=== PATIENT | male | born 1930 | race Caucasian/White ===

== ENCOUNTER 2017-11-28 12:01 | Emergency (ER) | payer MEDICARE ==
[~2017-11-28] VITALS: Ht 170.2 cm; Wt 75.6 kg
[~2017-11-28 12:01] MED LIST: AMLO10 PO; B COTAB3 PO; CALCIUM/MAG/ZINC PO; CODCAP PO; COUM4TAB7 PO; FISH1000 PO; GARL500T PO; POTASSIUM PO; SAWPOW PO; VITA100017 PO; ZOCO40TA PO; [UNRECOGNIZED DRUG - CODE] PO
[2017-11-28 12:04] VITALS: BP 129/73; PULSE 82; RESP 20; TEMP 97.6; O2SAT 97
[2017-11-28] MEDS ORDERED: APIX5TAB PO (12:41)
[2017-11-28] MEDS ORDERED: AMLO10TA2 PO (12:41)
[2017-11-28] MEDS ORDERED: OMEG12002 (12:41)
[2017-11-28] MEDS ORDERED: MULT1TAB46 PO (12:41)
[2017-11-28] MEDS ORDERED: EYE SUPPORT PO (12:41)
[2017-11-28] MEDS ORDERED: DICL75TA PO (12:41)
[2017-11-28] MEDS ORDERED: VITA2000 PO (12:41)
--- NOTE | 2017-11-28 13:34 | RADRPT ---
EXAM DATE/TIME: 11/28/2017 13:10 [facility] COMPARISON: FOOT LEFT COMPLETE ([id number]), November 28, 2017, 13:10. INDICATIONS : Left ankle pain post fall MEDICAL HISTORY : None. SURGICAL HISTORY : None. ENCOUNTER: Initial ACUITY: 2 days PAIN SCORE: 4/10 LOCATION: Left entire ankle FINDINGS: There is soft tissue swelling greatest laterally and diffuse decreased bone density. Ankle mortise is approximated. Vascular calcifications are noted. Plantar and posterior calcaneal spurs are present. CONCLUSION: Soft tissue swelling. Osiel Neff MD on November 28, 2017 at 13:33 Board Certified Radiologist. This report was verified electronically.
--- NOTE | 2017-11-28 13:37 | RADRPT ---
EXAM DATE/TIME: 11/28/2017 13:10 [facility] COMPARISON: ANKLE LEFT COMPLETE ([id number]), November 28, 2017, 13:10. INDICATIONS : Left foot pain post fall. MEDICAL HISTORY : None. SURGICAL HISTORY : None. ENCOUNTER: Initial ACUITY: 2 days PAIN SCORE: 5/10 LOCATION: Left entire foot FINDINGS: There is soft tissue swelling about the ankle. Bone density is diminished. Calcaneal spurs are presen t. No fractures are seen. Vascular calcifications are noted. CONCLUSION: Soft tissue swelling. Atherosclerosis. Osiel Neff MD on November 28, 2017 at 13:35 Board Certified Radiologist. This report was verified electronically.
--- NOTE | 2017-11-28 13:56 | RADRPT ---
EXAM DATE/TIME: 11/28/2017 13:36 [facility] COMPARISON: No previous studies available for comparison. INDICATIONS : Trauma. Fall. RADIATION DOSE: 65.72 CTDIvol (mGy) MEDICAL HISTORY : A- fib. CAD. Hypercholesterolemia. COPD. Enlarged prostate. Arthritis. Smoker SURGICAL HISTORY : Hernia repair. Appendectomy. Cholecystectomy. Bilateral knee replacements. ENCOUNTER: Initial ACUITY: 1 day PAIN SCALE: 4/10 LOCATION: cranial TECHNIQUE: Multiple contiguous axial images were obtained of the head. Using automated exposure control and adj ustment of the mA and/or kV according to patient size, radiation dose was kept as low as reasonably a chievable to obtain optimal diagnostic quality images. DICOM format image data is available electro nically for review and comparison. FINDINGS: There is atrophy. No hemorrhage, infarct, or mass. Osseous structures are intact. CONCLUSION: No acute disease. Osiel Neff MD on November 28, 2017 at 13:54 Board Certified Radiologist. This report was verified electronically.
[2017-11-28] MEDS ORDERED: oxyCODONE/ACETAMINOPHEN 5 MG/325 MG TAB PO ONE (14:15)
--- NOTE | 2017-11-28 14:17 | RADRPT ---
EXAM DATE/TIME: 11/28/2017 13:40 [facility] COMPARISON: No previous studies available for comparison. INDICATIONS : Trauma. Fall. Low back pain. RADIATION DOSE: 32.87 CTDIvol (mGy) MEDICAL HISTORY : A- fib. CAD. Hypercholesterolemia. COPD. Enlarged prostate. Arthritis. Smoker. SURGICAL HISTORY : Hernia repair. Appendectomy. Cholecystectomy. Bilateral knee replacements ENCOUNTER: Initial ACUITY: 1 day PAIN SCALE: 6/10 LOCATION: Lumbar spine. TECHNIQUE: Volumetric scanning of the lumbar spine was performed. Multiplanar reconstructions in the sagittal, coronal and oblique axial planes were performed. Using automated exposure control and adjustment of the mA and/or kV according to patient size, radiation dose was kept as low as reasonably achievable t o obtain optimal diagnostic quality images. DICOM format image data is available electronically for review and comparison. FINDINGS: There is slight retrolisthesis of L1 relative to L2 and of L2 relative to L3. There is moderate degen erative change present throughout with disc space narrowing and vacuum disc phenomena at L2-3 L3-4 wi th less severe changes at other levels. Multiple endplate osteophytes present throughout. There is no evidence of fracture or destructive change. There is fairly severe arthritic change of the posterior facet joints, particularly at the lumbosacral junction. There is no evidence of bony canal or forami nal compromise. There is annular disc bulge and brought superimposed dorsal disc protrusion at L3-4 with ligamentous hypertrophy contributing to mild concentric canal stenosis and mild asymmetrically right-sided forami nal narrowing. Less significant changes at adjacent levels. Elsewhere on the exam, note is made of left renal cyst and nonobstructing left renal stones. There is a 3 cm mass involving the left adrenal gland which is fairly homogeneously low density consistent wi th adenoma. CONCLUSION: No acute bony injury in the lumbar spine Georges Carcamo MD on November 28, 2017 at 14:11 Board Certified Radiologist. This report was verified electronically.
[2017-11-28] MEDS ORDERED: TRAM50 PO (14:45)
--- NOTE | 2017-11-28 14:46 | PD ---
HPI Chief Complaint: Injury Time Seen by Provider: 12:59 Travel History International Travel<30 days: No Contact w/Intl Traveler<30days: No Traveled to known affect area: No History of Present Illness HPI 87-year-old male here with left ankle and foot pain after mechanical trip and fall. Patient is a history of dementia and is anticoagulated on her request. His daughters is present for this visit. She reports that he is in his normal state of health with the exception that he of difficulty bearing weight on the left foot. He reports pain in the foot and the ankle which is worse with weight -bearing and standing for long periods time. Repeat with rest. Symptom severity is moderate. He denies headache, neck pain, chest pain, shortness breath, abdominal pain. Symptom severity is mild to moderate. PFSH Past Medical History Hx Anticoagulant Therapy: Yes Arthritis: Yes Atrial Fibrillation: Yes Blood Disorders: No Cancer: No Cardiovascular Problems: Yes (afib) High Cholesterol: Yes COPD: Yes Coronary Artery Disease: Yes Diabetes: No Diminished Hearing: Yes Endocrine: No Glaucoma: No Genitourinary: Yes Hepatitis: No Hiatal Hernia: No Hypertension: Yes Immune Disorder: No Implanted Vascular Access Dvce: Yes Medical other: Yes (BPH) Musculoskeletal: Yes Neurologic: No Psychiatric: No Reproductive: Yes (PRASTATE ENLARGMENT) Thyroid Disease: No Tetanus Vaccination: > 5 Years Influenza Vaccination: Yes Past Surgical History Abdominal Surgery: Yes (BILATERAL INGUINAL HERNIA REPAIR) Appendectomy: Yes Cholecystectomy: Yes Eye Surgery: Yes (JOLENE. CATARACT EXTRACT) Joint Replacement: Yes (JOLENE. TKR) Pacemaker: No Social History Alcohol Use: No Tobacco Use: Yes (1 ppd) Allergies-Medications (Allergen,Severity, Reaction): Coded Allergies: No Known Allergies (Verified Allergy, Severe, 11/28/17) Reported Meds & Prescriptions Reported Meds & Active Scripts Active Ultram (Tramadol HCl) 50 Mg Tab 50 Mg PO Q6H PRN Reported Phillips 3 1200 mg (Phillips-3 Fatty Acids) 684 Mg-1,200 Mg Cap Amlodipine (Amlodipine Besylate) 10 Mg Tab 10 Mg PO DAILY Vitamin D3 (Cholecalciferol) 2,000 Unit Cap 2,000 Units PO DAILY [eye support] 1 Tab PO DAILY Multi Vitamin Daily (Multiple Vitamin) 1 Tab Tab 1 Tab PO DAILY Diclofenac Sodium DR (Diclofenac Sodium) 75 Mg Tabdr 75 Mg PO BID Eliquis (Apixaban) 5 Mg Tab 5 Mg PO BID Review of Systems General / Constitutional: No: Fever Eyes: No: Visual changes HENT: No: Headaches Cardiovascular: No: Chest Pain or Discomfort Respiratory: No: Shortness of Breath Gastrointestinal: No: Abdominal Pain Genitourinary: No: Dysuria Skin: No Rash Physical Exam Narrative GENERAL: Alert and well-appearing 87-year-old male SKIN: Warm and dry. HEAD: Atraumatic. Normocephalic. EYES: Pupils equal and round. EOMs intact. No injection or drainage. ENT: No nasal bleeding or discharge. Mucous membranes pink and moist. NECK: Trachea midline. No JVD. No cervical midline tenderness. CARDIOVASCULAR: Regular rate and rhythm. No chest wall tenderness RESPIRATORY: No accessory muscle use. Clear to auscultation. Breath sounds equal bilaterally. GASTROINTESTINAL: Abdomen soft, non-tender, nondistended. Nonrigid. No rebound or guarding. MUSCULOSKELETAL: Extremities without clubbing, cyanosis. No obvious deformities. No calf tenderness or Swelling. Mild swelling to the left ankle and foot shows TTP to the dorsal aspect of the foot. Patient can flex and extend the ankle without difficulty. Normal sensation. 2+ dorsal pedis pulse. Brisk cap refill. Back: Nontender cervical and thoracic spine. Mild tenderness diffusely over the lumbar spine. No step-off deformity. No CVA tenderness. NEUROLOGICAL: Awake and alert. Answers questions appropriately. No obvious cranial nerve deficits. Motor grossly within normal limits. Five out of 5 muscle strength in the arms and legs. Normal speech. Data Data Last Documented VS Vital Signs Date Time Temp Pulse Resp B/P (MAP) Pulse Ox O2 Delivery O2 Flow Rate FiO2 11/28/17 12:04 97.6 82 20 129/73 (91) [address] Brain W/O Iv Contrast(Rout) (11/28/17 12:59) Ankle, Complete (Uaf0pix) (11/28/17 ) Foot, Complete (Tns0kco) (11/28/17 ) Ct Lumb Spine W/O Contrast (11/28/17 12:59) Oxycodone-Acetamin 5-325 Mg (Percocet (11/28/17 14:15) Ed Discharge Order (11/28/17 14:46) Bradford Bandage (11/28/17 14:46) [facility] Medical Decision Making Medical Screen Exam Complete: Yes Emergency Medical Condition: Yes Differential Diagnosis Ankle sprain versus ankle fracture, midfoot sprain versus midfoot fracture, ICH , lumbar sprain versus lumbar fracture Narrative Course 87-year-old male here with left ankle and foot pain after mechanical trip and fall yesterday. Patient is a history of dementia and is anticoagulated on her request. His daughters present for this visit. She reports that he is in his normal state of health with the exception that he of difficulty bearing weight on the left foot. He has a normal neurologic exam. The extremity is neurovascularly intact. X-rays are negative for fracture of the foot and ankle. CT scan of the brain negative for intracranial abnormality. CT scan of lumbar spine negative for acute fracture. Incidental finding of renal cyst was found. This was discussed at length with patient and family. They were given a printout of the report and instructed to follow up with his primary doctor. Patient was given a dose of Percocet which provided relief. Patient is ambulatory with a cane. X-rays request case management was consult in to discuss possible home health options. Please see her note for details. Patient is stable and ready for discharge Diagnosis Primary Impression: Ankle sprain Qualified Codes: S93.402A - Sprain of unspecified ligament of left ankle, initial encounter Referrals: Primary Care Physician Additional Instructions: Pain medication as needed. Bradford wrap and elevate the extremity. Follow-up the primary doctor. Scripts Walker with Front Wheels (Walker with Front Wheels) 1 Mis Mis EA .XX DIRECTED, #1 0 Refills Prov: Tameka Montanez 11/28/17 Tramadol (Ultram) 50 Mg Tab 50 MG PO Q6H Y for PAIN, #14 TAB 0 Refills Prov: Tameka Montanez 11/28/17 Disposition: DISCHARGE HOME Condition: Stable Tameka Montanez Nov 28, 2017 14:46
[2017-11-28] MEDS ORDERED: WALKER WHEELS/F1 MIS (15:18)
== END 2017-11-28 15:44 | disposition home or self-care (01) ==
LOC: PHEFT 12:01
DX: S93.402A Sprain of unspecified ligament of left ankle, initial encounter (principal); F17.200 Nicotine dependence, unspecified, uncomplicated; I10 Essential (primary) hypertension; I48.91 Unspecified atrial fibrillation; W01.0XXA Fall on same level from slipping, tripping and stumbling without subsequent striking against object, initial encounter; Z79.01 Long term (current) use of anticoagulants
CPT/HCPCS: 70450; 72131; 73610; 73630; 99284

== ENCOUNTER 2017-12-05 18:51 | Emergency (ER) | payer MEDICARE ==
[~2017-12-05] VITALS: Ht 180.3 cm; Wt 81.0 kg
[~2017-12-05 18:51] MED LIST changes: -AMLO10 PO; +AMLO10TA2 PO; +APIX5TAB PO; -B COTAB3 PO; -CALCIUM/MAG/ZINC PO; -CODCAP PO; -COUM4TAB7 PO; +DICL75TA PO; +EYE SUPPORT PO; -FISH1000 PO; -GARL500T PO; +MULT1TAB46 PO; +OMEG12002; -POTASSIUM PO; -SAWPOW PO; +TRAM50 PO; -VITA100017 PO; +VITA2000 PO; +WALKER WHEELS/F1 MIS; -ZOCO40TA PO; -[UNRECOGNIZED DRUG - CODE] PO
[2017-12-05 18:57] VITALS: BP 150/77; PULSE 106; RESP 20; TEMP 97.5; O2SAT 98
[2017-12-05 19:03] VITALS: BP 150/77; PULSE 106; RESP 20; TEMP 97.5; O2SAT 98
[2017-12-05] MEDS ORDERED: SODIUM CHLORIDE 0.9% FLUSH 10 ML FLUSH IVF PRN (19:30)
--- NOTE | 2017-12-05 19:31 | PD ---
HPI Chief Complaint: General Weakness Time Seen by Provider: 19:24 Travel History International Travel<30 days: No Contact w/Intl Traveler<30days: No Traveled to known affect area: No History of Present Illness HPI The patient is an 87-year-old male that complains of nonvertiginous dizziness for 6 weeks. He states there is no particular reason why he came in today and he has not reported this to his primary care physician. He just wanted to be "checked out". He denies any chest pain, shortness of breath. He does have a history of atrial fibrillation which is chronic. He was put on Eliquis but he discontinued this because he got skin rashes which were likely to be ecchymotic areas. He does have a history of edema for a year. He is a [facility] patient of Dr. Edgar Knapp. He denies any fever, nausea, vomiting or diarrhea. PFSH Past Medical History Hx Anticoagulant Therapy: Yes Arthritis: Yes Atrial Fibrillation: Yes Blood Disorders: No Cancer: No Cardiovascular Problems: Yes (afib) High Cholesterol: Yes COPD: Yes Coronary Artery Disease: Yes Diabetes: No Diminished Hearing: Yes Endocrine: No Glaucoma: No Genitourinary: Yes Hepatitis: No Hiatal Hernia: No Hypertension: Yes Immune Disorder: No Implanted Vascular Access Dvce: Yes Musculoskeletal: Yes Neurologic: No Psychiatric: No Reproductive: Yes (PRASTATE ENLARGMENT) Thyroid Disease: No Past Surgical History Abdominal Surgery: Yes (BILATERAL INGUINAL HERNIA REPAIR) Appendectomy: Yes Cholecystectomy: Yes Eye Surgery: Yes (JOLENE. CATARACT EXTRACT) Joint Replacement: Yes (JOLENE. TKR) Pacemaker: No Social History Alcohol Use: No Tobacco Use: Yes (1 ppd) Allergies-Medications (Allergen,Severity, Reaction): Coded Allergies: No Known Allergies (Verified Allergy, Severe, 12/05/17) Reported Meds & Prescriptions Reported Meds & Active Scripts Active Walker with Front Wheels (Device) 1 Mis Mis Ea .XX DIRECTED Ultram (Tramadol HCl) 50 Mg Tab 50 Mg PO Q6H PRN Reported Ethel 3 1200 mg (Ethel-3 Fatty Acids) 684 Mg-1,200 Mg Cap Amlodipine (Amlodipine Besylate) 10 Mg Tab 10 Mg PO DAILY Vitamin D3 (Cholecalciferol) 2,000 Unit Cap 2,000 Units PO DAILY [eye support] 1 Tab PO DAILY Multi Vitamin Daily (Multiple Vitamin) 1 Tab Tab 1 Tab PO DAILY Diclofenac Sodium DR (Diclofenac Sodium) 75 Mg Tabdr 75 Mg PO BID Review of Systems Except as stated in HPI: all other systems reviewed are Neg Physical Exam Narrative GENERAL: The patient is alert, oriented 3 in no apparent distress. He is hard of hearing. He does not appear to be in any respiratory distress. His vital signs show blood pressure 130/77 with heart rate of 106 but are otherwise normal. SKIN: Focused skin assessment warm/dry. HEAD: Atraumatic. Normocephalic. EYES: Pupils equal and round. No scleral icterus. No injection or drainage. ENT: No nasal bleeding or discharge. Mucous membranes pink and moist. NECK: Trachea midline. No JVD. CARDIOVASCULAR: Atrial fibrillation rhythm with rapid ventricular response of 106. No murmur appreciated. RESPIRATORY: No accessory muscle use. Clear to auscultation. Breath sounds equal bilaterally. GASTROINTESTINAL: Abdomen soft, non-tender, nondistended. Hepatic and splenic margins not palpable. MUSCULOSKELETAL: No obvious deformities. No clubbing. No cyanosis. No edema. NEUROLOGICAL: Awake and alert. No obvious cranial nerve deficits. Motor grossly within normal limits. Normal speech. PSYCHIATRIC: Appropriate mood and affect; insight and judgment normal. Data Data Last Documented VS Vital Signs Date Time Temp Pulse Resp B/P (MAP) Pulse Ox O2 Delivery O2 Flow Rate FiO2 12/05/17 19:47 96 Room Air 12/05/17 19:47 12/05/17 19:03 97.5 106 20 Orders Orders Electrocardiogram (12/05/17 19:24) B-Type Natriuretic Peptide (12/05/17 19:24) Complete Blood Count With Diff (12/05/17 19:24) Comprehensive Metabolic Panel (12/05/17 19:24) Magnesium (Mg) (12/05/17 19:24) Prothrombin Time / Inr (Pt) (12/05/17 19:24) Act Partial Throm Time (Ptt) (12/05/17 19:24) Troponin I (12/05/17 19:24) Ecg Monitoring (12/05/17 19:24) Iv Access Insert/Monitor (12/05/17 19:24) Oximetry (12/05/17 19:24) Oxygen Administration (12/05/17 19:24) Sodium Chloride 0.9% Flush (Ns Flush) (12/05/17 19:30) Chest, Pa & Lat (12/05/17 19:24) Labs Laboratory Tests Test 12/05/17 19:50 White Blood Count 6.8 TH/MM3 Red Blood Count 4.53 MIL/MM3 Hemoglobin 13.8 GM/DL Hematocrit 41.6 % Mean Corpuscular Volume 91.7 FL Mean Corpuscular Hemoglobin 30.4 PG Mean Corpuscular Hemoglobin Concent 33.1 % Red Cell Distribution Width 13.4 % Platelet Count 243 TH/MM3 Mean Platelet Volume 6.2 FL Neutrophils (%) (Auto) 77.1 % Lymphocytes (%) (Auto) 13.6 % Monocytes (%) (Auto) 7.9 % Eosinophils (%) (Auto) 1.0 % Basophils (%) (Auto) 0.4 % Neutrophils # (Auto) 5.3 TH/MM3 Lymphocytes # (Auto) 0.9 TH/MM3 Monocytes # (Auto) 0.5 TH/MM3 Eosinophils # (Auto) 0.1 TH/MM3 Basophils # (Auto) 0.0 TH/MM3 CBC Comment DIFF FINAL Differential Comment Prothrombin Time 12.1 SEC Prothromb Time International Ratio 1.2 RATIO Activated Partial Thromboplast Time 26.7 SEC Blood Urea Nitrogen 30 MG/DL Creatinine 1.70 MG/DL Random Glucose 98 MG/DL Total Protein 7.6 GM/DL Albumin 4.0 GM/DL Calcium Level 9.3 MG/DL Magnesium Level 2.3 MG/DL Alkaline Phosphatase 52 U/L Aspartate Amino Transf (AST/SGOT) 15 U/L Alanine Aminotransferase (ALT/SGPT) 21 U/L Total Bilirubin 0.5 MG/DL Sodium Level 143 MEQ/L Potassium Level 3.4 MEQ/L Chloride Level 106 MEQ/L Carbon Dioxide Level 29.2 MEQ/L Anion Gap 8 MEQ/L Estimat Glomerular Filtration Rate 38 ML/MIN Troponin I LESS THAN 0.02 NG/ML B-Type Natriuretic Peptide 200 PG/ML MDM Medical Decision Making Medical Screen Exam Complete: Yes Emergency Medical Condition: Yes Medical Record Reviewed: Yes Interpretation(s) EKG shows atrial fibrillation with premature ventricular complexes. The ventricular rate is 87. The complete metabolic profile shows a BUN of 30, creatinine 1.7, GFR 38 with potassium 3.4 but is otherwise normal. The magnesium is normal. The troponin I is normal. The chest x-ray shows clear lungs and cardiomediastinal contours are unremarkable. The BNP is 200. The pro time is 12.1 but the coagulation profile is otherwise normal. EKG shows no change from a 2008 EKG. Differential Diagnosis Electrolyte disorder, anemia, hypo-/hyperglycemia, renal insufficiency, acute coronary syndrome, congestive heart failure Narrative Course It is now 0855 and the patient feels much better and wants to go home. He does have apparent chronic renal insufficiency. He is to follow-up with Dr. Knapp about this. He does not have any acute reason to be admitted in the hospital. He may have some element of congestive heart failure with the elevated BNP. He does have some chronic bilateral leg swelling. He does not have any shortness of breath. Impression: Nonvertiginous dizziness-resolved Diagnosis Primary Impression: Dizziness Additional Instructions: As we discussed, follow-up with Dr. Knapp next week. Make sure you bring the laboratory/imaging results with you to his office. Med/Other Pt SpecificInfo: No Change to Meds Disposition: 01 DISCHARGE HOME Condition: Stable Valente Jaramillo MD Dec 05, 2017 19:31
[2017-12-05 20:08] LABS: AUTOMATED NEUTROPHIL # 5.3 TH/MM3 (1.8-7.7); BASOPHIL % 0.4 % (0.0-2.0); EOSINOPHIL # 0.1 TH/MM3 (0-0.4); HEMATOCRIT 41.6 % (39.0-51.0); HEMOGLOBIN 13.8 GM/DL (13.0-17.0); LYMPH % 13.6 % (9.0-44.0); LYMPHOCYTE # 0.9 TH/MM3 (1.0-4.8); MEAN CELL VOLUME 91.7 FL (80.0-100.0); MEAN CORPUSCULAR HEMOGLOBIN 30.4 PG (27.0-34.0); MEAN CORPUSCULAR HGB CONC 33.1 % (32.0-36.0); MEAN PLATELET VOLUME 6.2 FL (7.0-11.0); MONO % 7.9 % (0.0-8.0); MONOCYTE # 0.5 TH/MM3 (0-0.9); NEUT % 77.1 % (16.0-70.0); PLATELET COUNT 243 TH/MM3 (150-450); RED BLOOD COUNT 4.53 MIL/MM3 (4.50-5.90); RED CELL DISTRIBUTION WIDTH 13.4 % (11.6-17.2); WHITE BLOOD COUNT 6.8 TH/MM3 (4.0-11.0)
--- NOTE | 2017-12-05 20:11 | RADRPT ---
EXAM DATE/TIME: 12/05/2017 19:57 [facility] COMPARISON: No previous studies available for comparison. INDICATIONS : Chest pain and dizziness. MEDICAL HISTORY : A- fib. CAD. Hypercholesterolemia. COPD. Enlarged prostate. Arthritis SURGICAL HISTORY : Total knee replacement, left. Total knee replacement, right. Hernia repair. Appendectomy. Cholecyste ctomy. ENCOUNTER: Initial ACUITY: 2 months PAIN SCORE: 7/10 LOCATION: Bilateral chest FINDINGS: PA and lateral views of the chest demonstrate the lungs to be symmetrically aerated without evidence of mass, infiltrate or effusion. The cardiomediastinal contours are unremarkable. Osseous structure s are intact. CONCLUSION: The lungs are clear. Naseem Salazar MD on December 05, 2017 at 20:09 Board Certified Radiologist. This report was verified electronically.
[2017-12-05 20:23] LABS: CHLORIDE 106 MEQ/L (98-107); SODIUM (NA) 143 MEQ/L (136-145)
[2017-12-05 20:27] LABS: CALCIUM 9.3 MG/DL (8.5-10.1)
[2017-12-05 20:28] LABS: BICARBONATE 29.2 MEQ/L (21.0-32.0); BLOOD UREA NITROGEN 30 MG/DL (7-18); GLUCOSE,RANDOM 98 MG/DL (74-106); MAGNESIUM 2.3 MG/DL (1.5-2.5)
[2017-12-05 20:29] LABS: INTERNATIONAL NORMALIZED RATIO 1.2 RATIO; PROTHROMBIN TIME - PATIENT 12.1 SEC (9.8-11.6)
[2017-12-05 20:31] LABS: ALT (GPT) 21 U/L (12-78); AST (GOT) 15 U/L (15-37); GLOMERULAR FILTRATION RATE 38 ML/MIN (>89)
[2017-12-05 20:32] LABS: TOTAL BILIRUBIN ADULT 0.5 MG/DL (0.2-1.0); TOTAL PROTEIN 7.6 GM/DL (6.4-8.2)
[2017-12-05 20:33] LABS: ALKALINE PHOSPHATASE 52 U/L (45-117)
[2017-12-05 20:36] LABS: TROPONIN I LESS THAN 0.02 NG/ML (0.02-0.05)
[2017-12-05 20:58] VITALS: BP 151/72; PULSE 90; RESP 18; O2SAT 97
--- NOTE | 2017-12-07 00:11 | EKG ---
Date Performed: 12/05/2017 Time Performed: 19:35:21 PTAGE: 87 years EKG: ATRIAL FIBRILLATION WITH ABERRANT CONDUCTION OR VENTRICULAR PREMATURE COMPLEXES MARKED LEFT AXIS DEVIATION ABNORMAL ECG PREVIOUS TRACING : 12/28/2007 08.59 Since the prior tracing, there has been no significant lawson DOCTOR: Parish Redman Interpretating Date/Time 12/07/2017 00:10:15
== END 2017-12-05 21:12 | disposition home or self-care (01) ==
LOC: PHED 18:51
DX: R42 Dizziness and giddiness (principal); I48.2 Chronic atrial fibrillation; I10 Essential (primary) hypertension; F17.200 Nicotine dependence, unspecified, uncomplicated; Z79.01 Long term (current) use of anticoagulants
CPT/HCPCS: 71046; 80053; 83735; 83880; 84484; 85025; 85610; 85730; 93005; 99285